=== PATIENT | female | born 1935 | race Caucasian/White ===

== ENCOUNTER 2016-08-01 07:24 | Emergency (ER) | payer OTHER ==
[~2016-08-01] VITALS: Ht 152.4 cm; Wt 63.5 kg
[~2016-08-01 07:24] MED LIST: ALEN70TA39 PO; ASCO500C PO; BUME1TAB PO; CALTTAB10 PO; FLUO10CA4; GLUC500C3 OR; HYDR200T3 OR; IBUP600T26 PO; LORA1TAB PO; LOVA40TA PO; NORV10TA PO; PRIL10CA PO; ULTR50TA PO; VITA100032
[2016-08-01 07:32] VITALS: BP 144/65; PULSE 93; RESP 18; TEMP 98.8; O2SAT 97
[2016-08-01] MEDS ORDERED: HYDR200T3 PO (07:47)
[2016-08-01] MEDS ORDERED: LOVA40TA PO (07:47)
[2016-08-01] MEDS ORDERED: AMLO10TA2 PO (07:47)
[2016-08-01] MEDS ORDERED: OMEP40CA2 PO (07:47)
[2016-08-01] MEDS ORDERED: ALEN1TAB48 PO (07:47)
[2016-08-01] MEDS ORDERED: BUME1TAB PO (07:47)
[2016-08-01] MEDS ORDERED: FLUO10CA5 PO (07:47)
[2016-08-01] MEDS ORDERED: TRAM50TA PO (07:47)
[2016-08-01] MEDS ORDERED: LORA-373 PO (07:47)
[2016-08-01 08:00] VITALS: O2SAT 97
[2016-08-01] MEDS ORDERED: SODIUM CHLORIDE 0.9% FLUSH 5 ML FLUSH IVF PRN (08:00)
[2016-08-01 08:08] LABS: AUTOMATED NEUTROPHIL # 10.8 TH/MM3 (1.8-7.7); BASOPHIL # 0.3 TH/MM3 (0-0.2); BASOPHIL % 2.2 % (0.0-2.0); EOSINOPHIL # 0.1 TH/MM3 (0-0.4); EOSINOPHIL % 0.4 % (0.0-4.0); HEMATOCRIT 37.3 % (35.0-46.0); LYMPH % 12.3 % (9.0-44.0); LYMPHOCYTE # 1.8 TH/MM3 (1.0-4.8); MEAN CELL VOLUME 87.4 FL (80.0-100.0); MEAN CORPUSCULAR HEMOGLOBIN 28.8 PG (27.0-34.0); MEAN CORPUSCULAR HGB CONC 32.9 % (32.0-36.0); MONO % 9.2 % (0.0-8.0); NEUT % 75.9 % (16.0-70.0); PLATELET COUNT 299 TH/MM3 (150-450); RED BLOOD COUNT 4.26 MIL/MM3 (4.00-5.30); RED CELL DISTRIBUTION WIDTH 11.9 % (11.6-17.2); WHITE BLOOD COUNT 14.3 TH/MM3 (4.0-11.0)
[2016-08-01 08:15] LABS: CHLORIDE 106 MEQ/L (98-107); HEMO FLAGS AUTO DIFF; POTASSIUM 3.7 MEQ/L (3.5-5.1); SODIUM (NA) 140 MEQ/L (136-145)
[2016-08-01 08:18] LABS: ANION GAP 10 MEQ/L (5-15); BICARBONATE 23.9 MEQ/L (21.0-32.0)
[2016-08-01 08:19] LABS: BLOOD UREA NITROGEN 21 MG/DL (7-18)
[2016-08-01 08:21] LABS: ALT (GPT) 22 U/L (10-53); AST (GOT) 19 U/L (15-37)
[2016-08-01 08:22] LABS: GLOMERULAR FILTRATION RATE 33 ML/MIN (>89)
[2016-08-01 08:23] LABS: TOTAL BILIRUBIN ADULT 0.9 MG/DL (0.2-1.0)
[2016-08-01 08:24] LABS: ALKALINE PHOSPHATASE 91 U/L (45-117)
--- NOTE | 2016-08-01 08:25 | RADHPO ---
EXAM DATE/TIME: 08/01/2016 07:59 [place] COMPARISON: No previous studies available for comparison. INDICATIONS : Cough, fever. MEDICAL HISTORY : None. SURGICAL HISTORY : None. ENCOUNTER: Initial ACUITY: 3 days PAIN SCORE: 0/10 LOCATION: Bilateral chest FINDINGS: The patient has a large hiatal hernia. The lungs are clear. The heart and pulmonary vascularity are normal. Old rib fractures are seen on the left. CONCLUSION: Negative chest for acute disease. Maxime Hong MD FACR on August 01, 2016 at 8:19 Board Certified Radiologist. This report was verified electronically.
[2016-08-01] MEDS ORDERED: SODIUM CHLORID 0.9% 500 ML INJ 500 ML IV ONE (08:30)
[2016-08-01 08:32] LABS: SCAN/DIFF AUTO DIFF CONFIRMED
--- NOTE | 2016-08-01 08:35 | PD ---
HPI Chief Complaint: Cold / Flu Symptoms Time Seen by Provider: 07:42 Travel History International Travel<30 days: No Contact w/Intl Traveler<30days: No Traveled to known affect area: No History of Present Illness HPI Patient is an 81-year-old female who presents to emergency for evaluation of multiple complaints. Patient reports that for the past few days, she has had increased nasal congestion, reports that she has had a cough with productive mucus production. Patient reports that when she coughs, she is Thick yellowish sputum. Reports that she has felt warm for the past few days, patient with no documented fevers at home. Patient with no recent travels or trips. Denies any sick contacts, reports that her feels fine and is completely asymptomatic. Patient currently is not on any antibiotics at this time. Patient denies myalgias. Patient reports that she did have a influenza vaccine as well as a pneumonia vaccination this year. Denies chest pain or shortness of breath. Patient also reports that she has noticed bright red blood in her stool for the past few months. Patient reports that every time she is a bowel movement, she notices that she has bright red blood on the toilet paper after she wipes. Patient reports that she has had a colonoscopy a few years ago, reports "they didn't find anything wrong with me." Denies sensation of lightheadedness or dizziness. Reports that she is due to see her primary care doctor in one month. Patient currently is not on any anticoagulants at this time. [facility] Past Medical History Anemia: Yes Arthritis: Yes High Cholesterol: Yes Diminished Hearing: No GERD: Yes Hypertension: Yes Respiratory: Yes (PNA) Tetanus Vaccination: > 5 Years Influenza Vaccination: Yes ?: Not Past Surgical History Appendectomy: Yes Hysterectomy: Yes Tonsillectomy: Yes Family History Family History: Negative Social History Alcohol Use: No (Rare) Tobacco Use: No Substance Use: No Allergies-Medications (Allergen,Severity, Reaction): Coded Allergies: No Known Allergies (Verified , 08/01/16) Reported Meds & Prescriptions Reported Meds & Active Scripts Active Reported Lorazepam 0.5 Mg Tab 0.5 Mg PO DAILY Fluoxetine (Fluoxetine HCl) 10 Mg Cap 10 Mg PO DAILY Lovastatin 40 Mg Tab 40 Mg PO DAILY Bumetanide 1 Mg Tab 1 Mg PO DAILY Amlodipine (Amlodipine Besylate) 10 Mg Tab 10 Mg PO DAILY Tramadol (Tramadol HCl) 50 Mg Tab 50 Mg PO BID Hydroxychloroquine (Hydroxychloroquine Sulfate) 200 Mg Tab 200 Mg PO DAILY Takw with food Omeprazole 40 Mg Cap 40 Mg PO DAILY Alendronate (Alendronate Sodium) 70 Mg Tab 70 Mg PO Q7D Review of Systems General / Constitutional: Positive: Chills Eyes: No: Visual changes HENT: No: Headaches, Neck Stiffness, Neck Pain Cardiovascular: No: Chest Pain or Discomfort, Palpitations Respiratory: Positive: Cough, No: Shortness of Breath, Wheezing Gastrointestinal: Positive: Hematochezia, No: Nausea, Vomiting, Diarrhea, Abdominal Pain Genitourinary: No: Urgency, Frequency, Dysuria Musculoskeletal: No: Myalgias, Arthralgias, Weakness, Pain Skin: No Rash Neurologic: No: Weakness Psychiatric: No: Depression Endocrine: No: Polydipsia Hematologic/Lymphatic: No: Easy Bruising Physical Exam Narrative GENERAL: nontoxic, noad SKIN: Warm and dry. HEAD: Atraumatic. Normocephalic. EYES: Pupils equal and round. No scleral icterus. No injection or drainage. ENT: No nasal bleeding or discharge. Mucous membranes pink and moist. Patient with increased sinus congestion NECK: Trachea midline. No JVD. CARDIOVASCULAR: Regular rate and rhythm. No murmur appreciated. RESPIRATORY: No accessory muscle use. Clear to auscultation. Breath sounds equal bilaterally. GASTROINTESTINAL: Abdomen soft, non-tender, nondistended. Hepatic and splenic margins not palpable. Rectal exam performed, patient with external hemorrhoids which are nonthrombosed with no active bleeding. She has heme positive light brown stool on evaluation MUSCULOSKELETAL: No obvious deformities. No clubbing. No cyanosis. No edema. NEUROLOGICAL: Awake and alert. No obvious cranial nerve deficits. Motor grossly within normal limits. Normal speech. PSYCHIATRIC: Appropriate mood and affect; insight and judgment normal. Data Data Last Documented VS Vital Signs Date Time Temp Pulse Resp B/P Pulse Ox O2 Delivery O2 Flow Rate FiO2 08/01/16 08:00 97 Room Air 08/01/16 07:40 18 08/01/16 07:32 98.8 93 144/65 Orders Complete Blood Count With Diff (08/01/16 07:51) Comprehensive Metabolic Panel (08/01/16 07:51) Influenzae A/B Antigen (08/01/16 07:51) Chest, Pa & Lat (08/01/16 07:51) Iv Access Insert/Monitor (08/01/16 07:51) Oximetry (08/01/16 07:51) Sodium Chloride 0.9% Flush (Ns Flush) (08/01/16 08:00) Sodium Chlorid 0.9% 500 Ml Inj (Ns 500 M (08/01/16 08:30) Labs Laboratory Tests Test 08/01/16 08:00 White Blood Count 14.3 TH/MM3 Red Blood Count 4.26 MIL/MM3 Hemoglobin 12.3 GM/DL Hematocrit 37.3 % Mean Corpuscular Volume 87.4 FL Mean Corpuscular Hemoglobin 28.8 PG Mean Corpuscular Hemoglobin 32.9 % Concent Red Cell Distribution Width 11.9 % Platelet Count 299 TH/MM3 Mean Platelet Volume 7.7 FL Neutrophils (%) (Auto) 75.9 % Lymphocytes (%) (Auto) 12.3 % Monocytes (%) (Auto) 9.2 % Eosinophils (%) (Auto) 0.4 % Basophils (%) (Auto) 2.2 % Neutrophils # (Auto) 10.8 TH/MM3 Lymphocytes # (Auto) 1.8 TH/MM3 Monocytes # (Auto) 1.3 TH/MM3 Eosinophils # (Auto) 0.1 TH/MM3 Basophils # (Auto) 0.3 TH/MM3 CBC Comment AUTO DIFF Differential Comment AUTO DIFF CONFIRMED Sodium Level 140 MEQ/L Potassium Level 3.7 MEQ/L Chloride Level 106 MEQ/L Carbon Dioxide Level 23.9 MEQ/L Anion Gap 10 MEQ/L Blood Urea Nitrogen 21 MG/DL Creatinine 1.50 MG/DL Estimat Glomerular Filtration 33 ML/MIN Rate Random Glucose 106 MG/DL Calcium Level 8.7 MG/DL Total Bilirubin 0.9 MG/DL Aspartate Amino Transf 19 U/L (AST/SGOT) Alanine Aminotransferase 22 U/L (ALT/SGPT) Alkaline Phosphatase 91 U/L Total Protein 7.1 GM/DL Albumin 3.3 GM/DL MDM Medical Decision Making Medical Screen Exam Complete: Yes Emergency Medical Condition: Yes Interpretation(s) Vital Signs Date Time Temp Pulse Resp B/P Pulse Ox O2 Delivery O2 Flow Rate FiO2 08/01/16 08:00 97 Room Air 08/01/16 07:40 18 97 Room Air 08/01/16 07:32 98.8 93 18 144/65 97 Differential Diagnosis Pneumonia, influenza, viral syndrome, sinusitis, GI bleed, gastric ulcer, hemorrhoids Narrative Course Patient is an 81-year-old female who presents to emergency room with multiple complaints. Patient reports that for the past few days, she has had increased sinus congestion with productive cough. Patient with no fevers, reports chills. Patient with no sick contacts at home. X-ray of chest ordered for evaluation of possible pneumonia. Patient for evaluation of possible flu. CBC, BMP ordered for further evaluation symptoms. She also with hematochezia for the past few months after having bowel movements. Patient reports that she only notices symptoms with bowel movements , does not feel lightheaded or dizzy this time. Reports concern was performed, patient does have nonthrombosed external hemorrhoids with no obvious bleeding at this time. Patient with most likely bright red blood after BM's secondary to hemorrhoids. Check a hemoglobin of patient, patient understands that she ultimately needs to follow-up with her GI doctor as well as her primary care doctor. Discussed with patient treatment options for hemorrhoids. Patient reevaluated, patient feeling much better. Reviewed all labs and all studies with patient in detail. Patient will follow-up with her primary care doctor as well as her GI doctor and will return to ER as needed. CBC & BMP Diagram 08/01/16 08:00 Microbiology Date/Time Procedure Status Source Growth 08/01/16 08:00 Influenza Types A,B Antigen (AMBIKA) - Final Complete Nasal Aspirate NEGATIVE FOR FLU A AND B ANTIGEN.... pt with wbc 14.3 - xray of chest neg for pneumonia, influenza neg, patient with most likely bronchitis. pt also reports hematochezia for past few months after bm's, hgb stable at 12.3 - pt instructed to follow up with her GI doctor as well as her primary care doctor. Signs and symptoms of when to return to the emergency room reviewed with patient detail. Patient understands need to return to emergency room immediately if signs and symptoms progress or worsen. Diagnosis Primary Impression: Bronchitis Additional Impressions: Hematochezia Dehydration Patient Instructions: General Instructions Additional Instructions: Please return to ER as needed Please follow-up with your primary care doctor in 2-3 days Please follow-up with your GI doctor Return to ER immediately if your symptoms progress or worsen Med/Other Pt SpecificInfo: Prescription(s) given Scripts Promethazine-Codeine Liq 6.25-10 Mg/5 Ml Syrp5 Ml PO Q6H PRN (COUGH AND/OR COLD SYMPTOMS) 7 Days Ref 0 Prov:Rosalinda Silver DO 08/01/16 Benzonatate (Tessalon Perles)100 Mg [id number] Mg PO TID PRN (COUGH) #30 CAP Ref 0 Prov:Rosalinda Silver DO 08/01/16 Azithromycin 500 Mg [id number] Mg PO DAILY #5 TAB Ref 0 Prov:Rosalinda Silver DO 08/01/16 Disposition: 01 DISCHARGE HOME Condition: Fair Rosalinda Silver DO Aug 01, 2016 08:35
[2016-08-01] MEDS ORDERED: BENZ100 PO (09:29)
[2016-08-01] MEDS ORDERED: AZIT500T2 PO (09:29)
[2016-08-01] MEDS ORDERED: PROM6.256 PO (09:29)
[2016-08-01] MEDS ORDERED: BENZONATATE 100 MG CAP PO ONE (09:30)
[2016-08-01] MEDS ORDERED: AZITHROMYCIN 250 MG TAB PO ONE (09:30)
[2016-08-01 09:40] VITALS: BP 160/76; PULSE 80; RESP 16; O2SAT 96
== END 2016-08-01 09:45 | disposition home or self-care (01) ==
LOC: PHED 07:24
DX: J40 Bronchitis, not specified as acute or chronic (principal); E86.0 Dehydration; K92.1 Melena; K64.9 Unspecified hemorrhoids; D64.9 Anemia, unspecified; M19.90 Unspecified osteoarthritis, unspecified site; I10 Essential (primary) hypertension; E78.00 Pure hypercholesterolemia, unspecified
CPT/HCPCS: 71020; 80053; 85025; 87804; 96360; 99285; J7040